=== PATIENT | male | born 1980 | race Caucasian/White ===

== ENCOUNTER 2022-02-12 17:37 | Emergency (ER) | payer SELFPAY ==
[2022-02-12] MEDS ORDERED: Ketorolac 60 MG/2 ML SDV IM ONE (21:19)
== END 2022-02-12 21:40 | disposition home or self-care (01) ==
LOC: JD.ED 17:37
DX: S50.812A Abrasion of left forearm, initial encounter (principal); Z86.16 Personal history of COVID-19; W22.09XA Striking against other stationary object, initial encounter
CPT/HCPCS: 73090; 96372; 99283; J1885; 99282